=== PATIENT | male | born 1970 | race Caucasian/White ===

== ENCOUNTER → 2021-02-15 | Outpatient (CLI) | payer OTHER ==
[~2021-02-15] MED LIST: NORCO 325 MG-51 TAB PO; POTASSIUM20 MEQ PO; TENORETIC-25/501 TAB PO
== END | disposition home or self-care (01) ==
LOC: RAD 16:02
PROVIDERS: ATTEND Chiropractor Orthopedic
DX: S39.012A Strain of muscle, fascia and tendon of lower back, initial encounter (principal); X58.XXXA Exposure to other specified factors, initial encounter; Y93.89 Activity, other specified; Y92.89 Other specified places as the place of occurrence of the external cause; Y99.8 Other external cause status

== ENCOUNTER → 2022-06-29 | Outpatient (CLI) | payer OTHER | END | disposition home or self-care (01) | LOC: LAB 14:01 → RAD 14:01 | PROVIDERS: ATTEND Urology | DX: N20.0 Calculus of kidney (principal) ==